=== PATIENT | female | born 1950 | race Caucasian/White ===

== ENCOUNTER 2019-11-07 05:53 | Emergency (ER) | payer SELFPAY ==
[~2019-11-07] VITALS: Ht 165.1 cm; Wt 68.0 kg
--- NOTE | 2019-11-07 06:00 | NUR ---
Dr. Jaime at bedside for MSE.
[2019-11-07] MEDS ORDERED: BISO5TAB20 PO (06:10)
[2019-11-07] MEDS ORDERED: RAMI2.5C2 PO (06:10)
[2019-11-07] MEDS ORDERED: ADENOSINE 6 MG/2 ML SYR IV ONE ×3 (06:11→06:30)
[2019-11-07] MEDS ORDERED: IV NORMAL SALINE 1000 ML BAG IV ONE (06:15)
[2019-11-07 06:19] LABS: BASOPHILS # (AUTO) 0.1 K/uL (0.0-8.0); EOSINOPHILS # (AUTO) 0.7 K/uL (0.0-0.7); EOSINOPHILS % (AUTO) 10.1 % (0.0-7.0); LYMPHOCYTES # (AUTO) 3.1 K/uL (20.0-40.0); LYMPHOCYTES % (AUTO) 44.7 % (20.5-51.5); MEAN CORPUSCULAR HEMOGLOBIN 30.1 uug (24.7-32.8); MEAN CORPUSCULAR HGB CONC 33 g/dL (32.3-35.6); MEAN CORPUSCULAR VOLUME 89.9 fL (75.5-95.3); MONOCYTES # (AUTO) 0.4 K/uL (2.0-10.0); MONOCYTES % (AUTO) 5.8 % (0.0-11.0); NEUTROPHILS # (AUTO) 2.6 K/uL (1.8-8.9); NEUTROPHILS % (AUTO) 38.4 % (38.5-71.5); PLATELET COUNT (AUTO) 253 K/uL (179-408); RED BLOOD CELL COUNT(AUTO) 4.68 MIL/uL (3.63-4.92); WHITE BLOOD COUNT (AUTO) 6.9 K/uL (3.8-11.8)
--- NOTE | 2019-11-07 06:20 | NUR ---
Xray at bedside.
[2019-11-07 06:37] LABS: BILIRUBIN,DIRECT 0.1 mg/dL (0.0-0.2); BILIRUBIN,TOTAL 0.6 mg/dL (0.2-1.0); POTASSIUM 3.8 mmol/L (3.5-5.1); TOTAL PROTEIN, SERUM 7.3 g/dL (6.4-8.2)
--- NOTE | 2019-11-07 06:57 | NUR ---
Report given to Román Chang.
[2019-11-07] MEDS ORDERED: METOPROLOL TARTRATE 50 MG TABLET PO ONE (07:30)
[2019-11-07] MEDS ORDERED: METOPROLOL TARTRATE 50 MG TABLET ONE (07:46)
--- NOTE | 2019-11-07 08:08 | NUR ---
PT WAS D/C'd TO HOME. AFTER DR COX EVALUATION. D/C INSTRUCTIONS GIVEN TO THE PT BY DR COX.
[2019-11-07 08:09] VITALS: BP 138/81
== END 2019-11-07 08:11 | disposition home or self-care (01) ==
LOC: ER 05:58
DX: R00.2 Palpitations (principal)
CPT/HCPCS: 36415; 80048; 80076; 83880; 84484; 85025; 85730; 93005 ×2; 96374; 99284; J0153; 70030-TC; A4663; J7030

== ENCOUNTER 2019-11-09 12:36 | Emergency (ER) | payer SELFPAY ==
[~2019-11-09] VITALS: Ht 165.1 cm; Wt 68.0 kg
--- NOTE | 2019-11-09 12:43 | NUR ---
Dr Alcala at the bedside for MSE.
[2019-11-09 13:20] VITALS: BP 142/84
--- NOTE | 2019-11-09 13:21 | NUR ---
Patient discharged to home in stable conditon. Written and verbal after care instructions given. Patient verbalizes understanding of instructions.
== END 2019-11-09 13:21 | disposition home or self-care (01) ==
LOC: ER 12:36
DX: R00.2 Palpitations (principal); I48.91 Unspecified atrial fibrillation; I10 Essential (primary) hypertension; Z90.49 Acquired absence of other specified parts of digestive tract; Z90.710 Acquired absence of both cervix and uterus; Z79.899 Other long term (current) drug therapy
CPT/HCPCS: 93005; A4663